=== PATIENT | male | born 1985 | race Caucasian/White ===

== ENCOUNTER 2022-05-09 08:10 | Emergency (ER) | payer BC, OTHER, SELFPAY ==
[2022-05-09 08:11] VITALS: BP 153/100; PULSE 77; RESP 17; TEMP 36.8; O2SAT 100; BMI 25.8
--- NOTE | 2022-05-09 08:22 | PC.NURSE ---
DR. MILLER AT BEDSIDE FOR EVALUATION
[2022-05-09 08:31] VITALS: BP 135/85; PULSE 82; O2SAT 97
--- NOTE | 2022-05-09 08:34 | PC.NURSE ---
PT MEDICATED PER EMAR, NO NEEDS AT THIS TIME
--- NOTE | 2022-05-09 08:39 | [facility].EDABDPAI ---
Discharge Plan Disposition Patient Disposition: Home, Self-Care Condition: Good Prescriptions Prescriptions: No Action fexofenadine [Mayelin Allergy] 180 mg tablet 180 mg PO DAILY Qty: 30 0RF Activity Restrictions/Add. Instructions Additional Instructions/Restrictions: Please follow up with your primary care physician in 1-2 days for further evaluation. Please take your PPI as prescribed and use mylanta, maalox and tums for acute flares. If symptoms persist please discuss with your primary care physician regarding possible EGD/colonoscopy and further imaging for further workup. Return if inability to eat and drink or any other concerns. Clinical Impressions Clinical Impression: Peptic ulcer disease Instructions Patient Instructions: Peptic Ulcer Print Language Print Language: Sinhala Discharge ED Provider: Courtney Lin Abdominal Pain HPI General Chief Complaint: Abdominal Pain Stated Complaint: Stomach pains Time Seen by Provider: 05/09/22 08:30 Mode of Arrival: Ambulatory Source of Information: Patient Limitations: No Limitations Description of Symptoms (Recalled from ER Triage Doc. by RN): PT REPORTS UPPER EPIGASTRIC PAIN SINCE TUESDAY. DENIES N/V/D. NO CHANGE IN BOWEL HABITS History of Present Illness HPI narrative: Mr. Martinez is a 36-year-old male past medical history for GERD presenting to the emergency department for intermittent, moderate epigastric pain since Tuesday. Patient denies any N/V/D. No diarrhea or constipation. Denies any chest pain or dyspnea. No fevers or other infectious symptoms. Reports pain resolved prior to arrival. complaint: abdominal pain Onset (ago): day(s) Consistency: intermittent Location: epigastric Severity: mild Quality: sharp Radiation: none Migration to: no migration Relieving factors: nothing Exacerbating factors: nothing Associated symptoms: denies other symptoms Related Data Previous Rx's Medication Instructions Recorded fexofenadine 180 mg tablet 180 mg PO DAILY #30 tabs 05/12/19 (Mayelin Allergy) Allergies Allergy/AdvReac Type Severity Reaction Status Date / Time acyclovir Allergy Severe Rash Verified 05/12/19 11:46 [facility] Disclaimer: The information contained in this section may have been updated after the patient was seen, as this information can be updated by other users. Surgical History H/O arthroscopic knee surgery H/O shoulder surgery H/O vasectomy Family History Other No significant family history Social History Smoking Status: Never smoker alcohol intake: never current occupational status: employed Travel in the last 8 weeks: None ROS Obtained: Yes All systems reviewed & no additional complaints except as documented Physical Exam General General appearance: alert and in no apparent distress Head Head exam: atraumatic and normal inspection Eye Eye exam: Present normal appearance and EOMI ENT ENT exam: Present normal exam, normal oropharynx and mucous membranes moist Neck Neck exam: Present normal inspection and full ROM Respiratory Respiratory exam: Present normal lung sounds bilaterally Cardiovascular Cardiovascular exam: Present regular rate and normal heart sounds Abdominal Exam Abdominal exam: Present soft and normal bowel sounds Extremities Exam Extremities exam: Present normal inspection and full ROM Back Exam Back exam: Present normal inspection and full ROM Neurological Exam Neurological exam: Present alert and oriented X3 Skin Skin exam: Present warm and normal color Medical Decision Making Medical Records Medical records reviewed: Yes I reviewed the patient's medical records. Corey Inquiry Pt receiving controlled substance: No Vital Signs: 05/09/22 08:11 05/09/22 08:31 05/09/22 09:15 Temperature 98.3 F 98.3 F Temperature S
[2022-05-09 08:41] LABS: Basophils # 0.2 K/mm3 (0-0.2); Basophils % 5.2 % (0.1-2.0); Eosinophils # 0.1 K/mm3 (0.0-0.4); Eosinophils % 1.9 % (0.1-12.0); Hematocrit 47.3 % (42.0-52.0); Lymphocytes # 1.3 K/mm3 (0.7-4.5); Lymphocytes % 28.2 % (10-50); Mean Corpuscular HGB Conc 33.8 g/dL (31.8-35.4); Mean Corpuscular Hemoglobin 28.8 pg (27.0-31.2); Mean Corpuscular Volume 85.3 fl (80-94); Mean Platelet Volume 7.5 fl (7.4-10.4); Monocytes # 0.5 K/mm3 (0.1-1.0); Monocytes % 9.7 % (1.7-9.3); Neutrophils # 2.8 K/mm3 (1.8-7.8); Neutrophils % 60.1 % (37.0-80.0); Platelet Count 289 K/mm3 (142-424); Red Blood Count 5.54 M/mm3 (4.60-6.20); Red Cell Distribution Width 12.9 % (11.5-17.5); White Blood Count 4.6 K/mm3 (4.8-10.8)
[2022-05-09 08:42] LABS: Chloride 102 mmol/L (98-107)
[2022-05-09 08:43] LABS: Potassium 3.7 mmoL/L (3.5-5.1); Sodium 135 mmol/L (136-145)
[2022-05-09 08:45] LABS: Alanine Aminotransferase 33 U/L (12-78); Alkaline Phosphatase 104 U/L (38-126); Anion Gap 9.7 mEq/L (5-15); Aspartate Amino Transferase 36 U/L (17-59); Bilirubin,Total 0.8 mg/dl (0.2-1.3); Blood Urea Nitrogen 11 mg/dl (9-20); Carbon Dioxide 27 mmol/L (22.0-30.0); Creatinine Clearance Estimated 109 mL/min (50-200); Estimated Glomerular Filt Rate 85 ml/min (>60); GFR (African American) 103 ML/MIN (>60); Lipase 41 U/L (23-300)
[2022-05-09 08:46] LABS: Albumin Level 4.8 g/dl (3.5-5.0); Albumin/Globulin Ratio 1.5 (1.1-1.8); Calcium 9.6 mg/dl (8.4-10.2); Globulin 3.1 g/dL (1.3-3.2); Glucose 97 mg/dl (74-100); Lactic Acid 0.7 mmol/L (0.7-2.1); Total Protein,Serum 7.9 g/dl (6.3-8.2)
--- NOTE | 2022-05-09 08:58 | PC.NURSE ---
DR. MILLER AT BEDSIDE TO REEVALUATE PT
[2022-05-09 09:15] VITALS: BP 142/89; PULSE 82; RESP 17; TEMP 36.8; O2SAT 99
== END 2022-05-09 09:15 | disposition home or self-care (01) ==
PROVIDERS: Emergency Provider Student in an Organized Health Care Education/Training Program
DX: K27.9 Peptic ulcer, site unspecified, unspecified as acute or chronic, without hemorrhage or perforation (principal); Z79.899 Other long term (current) drug therapy; Z88.8 Allergy status to other drugs, medicaments and biological substances
CPT/HCPCS: 80053; 83605; 83690; 85025; 99283